=== PATIENT | female | born 1950 | race Caucasian/White ===

== ENCOUNTER → 2021-05-30 14:51 | Outpatient (BNVA) | payer MEDICARE, BC, SELFPAY | PROVIDERS: PCP Internal Medicine; Visit Provider Anesthesiology | DX: M96.1 Postlaminectomy syndrome, not elsewhere classified (principal); M54.5 Low back pain; G58.9 Mononeuropathy, unspecified; Z79.899 Other long term (current) drug therapy | CPT/HCPCS: 99202 ==

== ENCOUNTER → 2022-04-19 11:08 | Outpatient (BNVA) | payer MEDICARE, BC, SELFPAY | PROVIDERS: PCP Internal Medicine; Visit Provider Anesthesiology | DX: Z13.89 Encounter for screening for other disorder (principal) | CPT/HCPCS: Q3014 ==

== ENCOUNTER 2023-10-19 14:00 | Outpatient (RCR) | payer MEDICARE, BC, SELFPAY | END 2023-11-22 14:52 | disposition home or self-care (01) | LOC: HO.PT 14:00 | PROVIDERS: PCP Nurse Practitioner Primary Care; Visit Provider Student in an Organized Health Care Education/Training Program | DX: R10.2 Pelvic and perineal pain (principal) | CPT/HCPCS: 97112; 97140; 97162 ==

== ENCOUNTER 2024-02-13 14:56 | Outpatient (AMB) | payer MEDICARE, BC, SELFPAY ==
--- NOTE | 2024-02-13 14:57 | MHC.OFFVIS ---
Intake Vital Signs 02/13/24 15:12 Height 5 ft 5 in Weight 175 lb BMI 29.1 BP 160/70 H Blood Pressure Location Lt brachial Position Sitting Respiration 14 Pulse 79 Pulse Source Pulse Oximeter Pulse Oximetry (%) 98 Oxygen Delivery Method Room Air Intake Visit Reasons: back pain, procedure discussion last seen 05/10 Intake Note: Patient comes in to discuss back pain. Reports pain 02/26. Allergies No Known Allergies Allergy (Verified 04/19/22 11:10) HPI HPI Comments History of Present Illness Details Terri Alvarado is in my office today discussing possibility of further treatment. She was absent in this office since 2021. She continues to be interested in injections to alleviate her pain in the projection of the right buttock. She has possible positive Martín test on the right she has positive pelvic distraction and pelvic compression test on the right and she has positive Stinchfield test on the right. I can not exclude possibility of her pain coming from the right sacroiliac joint. 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 She also reported in the past she was diagnosed with coccydynia. After surgery on her Tarlov cyst did not bring her alleviation of the pain she went for 2nd opinion to Dr. Doss, who referred her for of this office to receive spinal cord stimulator for the treatment of her lower back pain. Also attention was attracted today that she reports pain with prolonged sitting, inability to seat for a long time. She brought me the report of the MRI which does not mentioned any edema but I prefer to see this MRI by myself. I offered this patient to perform today diagnostic sacroiliac joint injection on the right. I will meet this patient again after the injection I may offer her diagnostic medial branch blocks on the right as well. Depending on the MRI findings I may consider her for intrasept procedure. Prior: . She had multiple studies performed for her lower back. She had an MRI which is dictated as below. She was a subject of [facility] treatment for long period of time she received all injections known to the Pain Medicine to alleviate her pain: She received epidural steroid injections, facet joint injections, medial branch blocks, caudal epidural steroid injections, sacroiliac joint injections , intradiscal injection. The only injection she never received before Is cluneal nerve injection, or ganglion impar injection... Most of the pain she feels in the projection of the right buttock. She was subject of multiple sessions of physical therapy and chiropractic manipulations she has 10s unit at home which helps her minimally. She reports that physical therapy other than 10s unit does not help her pain. She tried tramadol gabapentin and other medications in the past to alleviate her pain. She reports that the gabapentin helps her minimally and she is planning to escalate the dose. She went for the consult with neurosurgeon and she had Tarlov cyst discovered and S1-S2 area. The Tarlov cysts was aspirated intraoperatively and it was filled with a fibrin glue. It alleviated her pain for few months and then pain can return back. In the thing she says that her sharp pain with radiation down to the extremity he is more rare now. She went for consultation to [place] [facility] and they referred this patient to me. The subject of referral is a discussion of spinal cord stimulator. [facility] Medical History (Updated 02/13/24 @ 16:04 by Palmer Bearden MD) Coccydynia Mononeuropathy, unspecified Postlaminectomy syndrome Low back pain Review of Systems Const All systems reviewed & are unremarkable except as noted in HPI and below ENT Reports Normal hearing present Neuro Reports Normal hearing present and Denies Sensory deficit (Neuro) Physical Exam Vital Signs: Last Vital Signs Pulse 79 02/13/24 15:12 Resp 14 02/13/24 15:12 BP 160/70 H 02/13/24 15:12 Pulse Ox 98 02/13/24 15:12 Oxygen Delivery Method Room Air 02/13/24 15:12 BMI result Body Mass Index 29.1 Const General: comfortable, no acute distress, well developed, alert and awake Eyes Pupils: Equal, round and reactive pupils present EOM: EOMs intact bilaterally Chest Chest palpation & inspection: normal inspection of the chest Resp Effort & Inspection: normal respiratory effort, able to speak in complete sentences, normal respiratory pattern, no audible wheezes and no cough Cardio Jugular venous distension: no JVD Back/Spine/Pelvis Other: no tenderness on palpation in paraspinal spinal region in lumbar spine. Loading test is positive. Range of motion in lumbar spine is preserved. Martín test is equivocal on the right but Stinchfield test pelvic compression test pelvic distraction test and Clare finger test might indicate sacroiliac joint pathology. SLR is negative bilaterally Neuro Cranial nerves: Yes Equal, round and reactive pupils present and Yes Normal hearing present Sensory Exam: No Sensory deficit (Neuro) Psych Speech and movement: Normal speech and movement present Affect: normal affect Attitude: cooperative Results Reviewed Results Reviewed: MRI of the lumbar spine 04/07/2021. Comparison to 07/19/2020. Findings: The study assumes 5 non rib bearing lumbar type vertebral bodies. There is minimal retrolisthesis of L1 on L2. Alignment is otherwise normal. Vertebral bodies heights are maintained. Bone marrow signal is within normal limits. Intervertebral disc spaces mildly desiccated between L5 and the L1 with minimal loss of disc space. The conus demonstrates normal signal and caliber with normal termination at L1-L2. Postsurgical changes are seen in lower back at midline. There is mild fatty atrophy of the posterior paraspinal muscles. It 6 mm overall T2 hyperintense focus of the left upper renal pole is too small to characterize but most complete bed able with the cyst. The visualized paraspinal soft tissues otherwise unremarkable. Finding bilevel: T12-L1: No significant disc herniation central stenosis or neural foraminal narrowing. L1-L2: Minimal broad-based disc bulge no significant central stenosis or neural foraminal narrowing. L2-L3: Minimal broad-based disc bulge no significant central stenosis or neural foraminal narrowing. L3-L4: Mild broad-based disc bulge with mild bilateral facet hypertrophy and ligamentum flavum infolding. No significant central stenosis or neural foraminal neck. L4-5: Mild broad-based disc bulge and mild facet hypertrophy but no significant central stenosis or neural foraminal narrowing. L5-S1 minimal broad-based disc bulge along with mild bilateral facet arthropathy no significant central stenosis or neural foraminal narrowing. Sacrum surgical defect in the posterior element is again noted at S1-S2 for a section of the prosthesis. There is several tiny cystic foci at the margin of surgical bed including the bilobed focus on the right measuring 370176 cm at C1-C2 which is unchanged from the prior exam 07/19/2020 allowing for differences in slice section Impression postsurgical changes at S1-S2 similar to 07/19/2020 with similar residual bilobed cystic structure on the right. Mild degenerative changes of the lumbar spine are otherwise similar to prior with no high-grade stenosis or nerve root compression. Assessment & Plan Assessment & Plan (1) Low back pain: Code(s): M54.5 - Low back pain (2) Postlaminectomy syndrome: Code(s): M96.1 - Postlaminectomy syndrome, not elsewhere classified (3) Mononeuropathy, unspecified: Code(s): G58.9 - Mononeuropathy, unspecified (4) Coccydynia: Code(s): M53.3 - Sacrococcygeal disorders, not elsewhere classified (5) Sacroiliitis: Code(s): M46.1 - Sacroiliitis, not elsewhere classified (6) Chronic right sacroiliac joint pain: Code(s): M53.3 - Sacrococcygeal disorders, not elsewhere classified; G89.29 - Other chronic pain Plan It is hard to make appropriate diagnosis for this patient she had so many procedures in the past. Her MRI looks relatively benign on the description however I would like to see the actual images.. I am not sure how Tarlov cyst is actually her pain generator of whenever is left of it. Dr. Doss in my opinion did not offer her surgery absolutely correctly there is nothing there to do with the surgery. She was diagnosed with coccydynia and treatment for this could be ganglion impar. However today considering the symptoms of the sacroiliitis on the right described as the above I offered her to perform right diagnostic sacroiliac joint injection. We decided to proceed with right diagnostic SI joint injection and after that I will see the MRI and we will assess the sacroiliac joint injection results and the findings on the image of the MRI. We did not discuss spinal cord stimulation. Patient Instructions: I here by testify that I spent 45 minutes in conversation with this patient as well as evaluating her prior records, evaluating her prior images, and organizing this note. Coding Level of Care Code Est Pt Level 5 (06953) Diagnoses Low back pain M54.5 Postlaminectomy syndrome M96.1 Mononeuropathy, unspecified G58.9 Coccydynia M53.3 Sacroiliitis M46.1 Chronic right sacroiliac joint pain M53.3; G89.29
[2024-02-13 15:12] VITALS: BP 160/70; PULSE 79; RESP 14; O2SAT 98; BMI 29.1
== END 2024-02-13 15:53 | disposition home or self-care (01) ==
PROVIDERS: PCP Nurse Practitioner Primary Care; Visit Provider Anesthesiology
DX: M54.50 Low back pain, unspecified (principal); M96.1 Postlaminectomy syndrome, not elsewhere classified; G58.9 Mononeuropathy, unspecified; M53.3 Sacrococcygeal disorders, not elsewhere classified; M46.1 Sacroiliitis, not elsewhere classified; G89.29 Other chronic pain
CPT/HCPCS: 99215

== ENCOUNTER → 2024-02-13 14:56 | Outpatient (BNVA) | payer MEDICARE, BC, SELFPAY | PROVIDERS: PCP Nurse Practitioner Primary Care; Visit Provider Anesthesiology | DX: M96.1 Postlaminectomy syndrome, not elsewhere classified (principal); M53.3 Sacrococcygeal disorders, not elsewhere classified; M54.50 Low back pain, unspecified; G58.9 Mononeuropathy, unspecified; M46.1 Sacroiliitis, not elsewhere classified; G89.29 Other chronic pain | CPT/HCPCS: 99212 ==

== ENCOUNTER 2024-02-26 06:20 | Outpatient (REF) | payer MEDICARE, BC, SELFPAY ==
--- NOTE | ~2024-02-26 | FL_ITS ---
EXAMINATION: XR FLUOROSCOPY WITH IMAGES CLINICAL INFORMATION: Right sacroiliac joint injection. COMPARISON: None available. TECHNIQUE: Fluoroscopy Supervised By: Dr. Palmer Bearden. Fluoroscopy Time: 0.1 minutes. Cumulative Dose: 5.52 mGy. DAP: 1.46 Gycm2. Images: 2. FINDINGS: The submitted images show an injection needle and injected contrast deposited in the vicinity of the right sacroiliac joint. FL/FL guidance in treatment room IMPRESSION: Intraoperative fluoroscopic guidance is provided during right sacroiliac joint injection. Please see the patient's Operative Report for full procedural details.
== END 2024-02-26 06:21 | disposition home or self-care (01) ==
LOC: CF 06:20
PROVIDERS: Visit Provider Anesthesiology
DX: M53.3 Sacrococcygeal disorders, not elsewhere classified (principal); M46.1 Sacroiliitis, not elsewhere classified; G89.29 Other chronic pain
CPT/HCPCS: 27096; J2795; Q9967

== ENCOUNTER 2024-02-26 14:41 | Outpatient (AMB) | payer MEDICARE, BC, SELFPAY ==
[2024-02-26 14:45] VITALS: BP 122/68; PULSE 86; RESP 14; O2SAT 97; BMI 28.6
--- NOTE | 2024-02-26 14:45 | MHC.OFFVIS ---
Intake Vital Signs 02/26/24 14:45 02/26/24 15:38 Height 5 ft 5 in 5 ft 5 in Weight 172 lb 172 lb BMI 28.6 28.6 BP 122/68 130/68 Blood Pressure Location Lt brachial Lt brachial Position Sitting Sitting Respiration 14 14 Pulse 86 78 Pulse Source Pulse Oximeter Pulse Oximeter Pulse Oximetry (%) 97 97 Oxygen Delivery Method Room Air Room Air Comment Pre-Op Post-Op Intake Visit Reasons: Right Dx SIJ inj Allergies No Known Allergies Allergy (Verified 02/26/24 15:43) [facility] Medical History (Updated 02/13/24 @ 16:04 by Palmer Bearden MD) Coccydynia Mononeuropathy, unspecified Postlaminectomy syndrome Low back pain Physical Exam Vital Signs: Last Vital Signs Pulse 78 02/26/24 15:38 Resp 14 02/26/24 15:38 BP 130/68 02/26/24 15:38 Pulse Ox 97 02/26/24 15:38 Oxygen Delivery Method Room Air 02/26/24 15:38 BMI result Body Mass Index 28.6 Assessment & Plan Assessment & Plan (1) Chronic right sacroiliac joint pain: Code(s): M53.3 - Sacrococcygeal disorders, not elsewhere classified; G89.29 - Other chronic pain (2) Sacroiliitis: Code(s): M46.1 - Sacroiliitis, not elsewhere classified Plan Right diagnostic Sacroiliac joint injection Informed consent was explained thoroughly to the patient.? All questions about benefits and risks for the procedure were answered. Patient came to the operating room and was positioned prone on the operating table with the pillow under the pelvis.? [place] [employer] monitors were applied and patient was deeply sedated.? The lower back and buttocks of the patient were prepped with ChloraPrep prepped and draped with sterile utility towels.? Sterilely draped C-arm was brought over the operating field and sq picture of patient's pelvis was demonstrated on the screen.? For the right joint tilting C-arm contralateral to the site of the joint the most posterior portion of the joints was superimposed with anterior silhouette of the joint.? Skin was injected in the projection of the joint slightly medial to the location of the joint with 25 gauge 1/2 inch needle using local lidocaine 2% . After that 22 gauge 3 and 1/2 inch needle was driven to the right joint in tunnel vision fashion.? When needle entered the joint capsule injection of the contrast was performed demonstrating intra-articular and minimally periarticular spread of the contrast.? After that 4 cc. of ropivacaine 0.5% was injected into each joint.? Upon completion of the injections the needles were removed and pressure were applied.? Sterile dressing was applied.? Upon completion of the injection patient was taken outside of the operating room to the recovery room where recovered uneventfully. Orders: Orders FL guidance in treatment room 02/26/24 G89.29 - Other chronic pain, M53.3 - Sacrococcygeal disorders, not elsewhere classified Coding Level of Care Code Procedure Only Diagnoses Chronic right sacroiliac joint pain M53.3; G89.29 Sacroiliitis M46.1
[2024-02-26 15:38] VITALS: BP 130/68; PULSE 78; RESP 14; O2SAT 97; BMI 28.6
== END 2024-02-26 15:43 | disposition home or self-care (01) ==
LOC: HO.PMCPRC 14:41
PROVIDERS: PCP Nurse Practitioner Primary Care; Visit Provider Anesthesiology
DX: M53.3 Sacrococcygeal disorders, not elsewhere classified (principal); G89.29 Other chronic pain; M46.1 Sacroiliitis, not elsewhere classified
CPT/HCPCS: 27096

== ENCOUNTER 2024-02-28 14:21 | Outpatient (AMB) | payer MEDICARE, BC, SELFPAY ==
--- NOTE | 2024-02-28 14:30 | A.OFFVIS_ITS ---
Intake Vital Signs 02/28/24 14:41 Height 5 ft 5 in Weight 172 lb BMI 28.6 BP 150/76 H Blood Pressure Location Lt brachial Position Sitting Respiration 16 Pulse 69 Pulse Source Pulse Oximeter Pulse Oximetry (%) 97 Oxygen Delivery Method Room Air Intake Visit Reasons: s/p right Dx Sij Inj Intake Note: Patient comes in for post-op appointment. Reports pain 0/10. Allergies No Known Allergies Allergy (Verified 02/28/24 14:41) HPI HPI Comments History of Present Illness Details Terri Alvarado is in my office today discussing possibility of further treatment. It was prolonged and difficult conversation with this patient again. She came today after diagnostic right sacroiliac joint injection I performed on her on 02/26/2024. She reports absence of pain for the 1st hour after the injection. Reports that pain after that started to climb up. However the pain remained at the level of 2/10 for the 1st 3 hours after the procedure at 04:00 hours pain was 3/10 at 05:00 hours pain was 4/10 it will returned to the baseline as 5/10. That corresponds to the time the ropivacaine would work for intra articular injection. I personally evaluated the MRI she brought to this office for me. She insists that the most of her pain is when she is sitting. She denies pain radiation into right lower extremity. She reports pain radiating only into the hip and the thigh. She was asking very appropriate questions. 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 I can not exclude or supports this opinion. Removal of this Tarlov cyst was done at S2 on the right. I offered her sacroiliac joint injection. This time it will be therapeutic procedure with steroids. The patient is reluctant to go for this procedure. There are minimal MRI changes at L5-S1 which could be read at as Modic type changes and I told her that I do not mind to try to perform even the intraseptal procedure although I told her honestly that this will be like while remy with unknown and not guaranteed results. I can not perform safely the procedure but it could be that this intervention is not alleviating her pain. I also told her that if for example sacroiliac joint injection will result in no improvement we can abandoned all the attempts to treat her pain with etiological chasing and divert ourselves to spinal cord stimulation or pain pump procedure (neuromodulation). She is not sure which way to proceed. She asked me to think about it. I told her that any time she is welcome after her decision to get engaged into sacroiliac joint injection therapeutic I will be here waiting for her decision. I told her that if she wants to consider the intraseptal procedure I may send her MRI to the experts radiologist on Modic type changes to confirm or deny presence of such changes in the lower lumbar spine. Prior: She was absent in this office since 2021. She continues to be interested in injections to alleviate her pain in the projection of the right buttock. She has possible positive Martín test on the right she has positive pelvic distraction and pelvic compression test on the right and she has positive Stinchfield test on the right. I can not exclude possibility of her pain coming from the right sacroiliac joint. 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 She also reported in the past she was diagnosed with coccydynia. After surgery on her Tarlov cyst did not bring her alleviation of the pain she went for 2nd opinion to Dr. Doss, who referred her for of this office to receive spinal cord stimulator for the treatment of her lower back pain. Also attention was attracted today that she reports pain with prolonged sitting, inability to seat for a long time. She brought me the report of the MRI which does not mentioned any edema but I prefer to see this MRI by myself. I offered this patient to perform today diagnostic sacroiliac joint injection on the right. I will meet this patient again after the injection I may offer her diagnostic medial branch blocks on the right as well. Prior: . She had multiple studies performed for her lower back. She had an MRI which is dictated as below. She was a subject of [facility] treatment for long period of time she received all injections known to the Pain Medicine to alleviate her pain: She received epidural steroid injections, facet joint injections, medial branch blocks, caudal epidural steroid injections, sacroiliac joint injections , intradiscal injection. The only injection she never received before Is cluneal nerve injection, or ganglion impar injection... Most of the pain she feels in the projection of the right buttock. She was subject of multiple sessions of physical therapy and chiropractic manipulations she has 10s unit at home which helps her minimally. She reports that physical therapy other than 10s unit does not help her pain. She tried tramadol gabapentin and other medications in the past to alleviate her pain. She reports that the gabapentin helps her minimally and she is planning to escalate the dose. She went for the consult with neurosurgeon and she had Tarlov cyst discovered and S1-S2 area. The Tarlov cysts was aspirated intraoperatively and it was filled with a fibrin glue. It alleviated her pain for few months and then pain can return back. In the thing she says that her sharp pain with radiation down to the extremity he is more rare now. She went for consultation to [place] [facility] and they referred this patient to me. The subject of referral is a discussion of spinal cord stimulator. [facility] Medical History (Updated 02/13/24 @ 16:04 by Palmer Bearden MD) Coccydynia Mononeuropathy, unspecified Postlaminectomy syndrome Low back pain Review of Systems Const All systems reviewed & are unremarkable except as noted in HPI and below ENT Reports Normal hearing present Neuro Reports Normal hearing present and Denies Sensory deficit (Neuro) Physical Exam Vital Signs: Last Vital Signs Pulse 69 02/28/24 14:41 Resp 16 02/28/24 14:41 BP 150/76 H 02/28/24 14:41 Pulse Ox 97 02/28/24 14:41 Oxygen Delivery Method Room Air 02/28/24 14:41 BMI result Body Mass Index 28.6 Const General: comfortable, no acute distress, well developed, alert and awake Eyes Pupils: Equal, round and reactive pupils present EOM: EOMs intact bilaterally Chest Chest palpation & inspection: normal inspection of the chest Resp Effort & Inspection: normal respiratory effort, able to speak in complete sentences, normal respiratory pattern, no audible wheezes and no cough Cardio Jugular venous distension: no JVD Back/Spine/Pelvis Other: no tenderness on palpation in paraspinal spinal region in lumbar spine. Loading test is positive. Range of motion in lumbar spine is preserved. Martín test is equivocal on the right but Stinchfield test pelvic compression test pelvic distraction test and Clare finger test might indicate sacroiliac joint pathology. SLR is negative bilaterally Neuro Cranial nerves: Yes Equal, round and reactive pupils present and Yes Normal hearing present Sensory Exam: No Sensory deficit (Neuro) Psych Speech and movement: Normal speech and movement present Affect: normal affect Attitude: cooperative Assessment & Plan Assessment & Plan (1) Low back pain: Code(s): M54.5 - Low back pain (2) Postlaminectomy syndrome: Code(s): M96.1 - Postlaminectomy syndrome, not elsewhere classified (3) Mononeuropathy, unspecified: Code(s): G58.9 - Mononeuropathy, unspecified (4) Coccydynia: Code(s): M53.3 - Sacrococcygeal disorders, not elsewhere classified Plan It is hard to make appropriate diagnosis for this patient she had so many procedures in the past. Her MRI looks relatively benign. I am not sure how Tarlov cyst is actually her pain generator of whenever is left of it. In my opinion Dr. Doss absolutely correctly did not offer her surgery, there is nothing there to do with the surgery. In the past she received all the injections known to the Pain Management however nothing helps her pain. She went to colorectal surgeon for consult and after the MRI of the pelvis it was discovered that the right side of her in all musculature was atrophied. It might be a result of the surgery on the Tarlov cyst. Diagnostic injection into the sacroiliac joint alleviated her pain for the 1st hour and decreased pain at least 50% for the next 4 hours the pain returned on 6 hour which corresponds to the action of ropivacaine. I offered her therapeutic SI joint injection and she refused. I also noted on the right sacroiliac joint mild insufficiency with 15 mm distance between the top portion of the sacrum and top portion of the ileum of the joint. The rest of the discussion is as above. She was referred to us to do neuromodulation specifically spinal cord stimulation [employer]. She is reluctant to go for this procedure. Patient Instructions: I here by testify that I spent 45 minutes in conversation with this patient as well as evaluating her MRI images as well as planning her care and organizing this note. Coding Level of Care Code Est Pt Level 5 (98306) Diagnoses Low back pain M54.5 Postlaminectomy syndrome M96.1 Mononeuropathy, unspecified G58.9 Coccydynia M53.3
[2024-02-28 14:41] VITALS: BP 150/76; PULSE 69; RESP 16; O2SAT 97; BMI 28.6
== END 2024-02-28 15:18 | disposition home or self-care (01) ==
PROVIDERS: PCP Nurse Practitioner Primary Care; Visit Provider Anesthesiology
DX: M54.50 Low back pain, unspecified (principal); M96.1 Postlaminectomy syndrome, not elsewhere classified; G58.9 Mononeuropathy, unspecified; M53.3 Sacrococcygeal disorders, not elsewhere classified
CPT/HCPCS: 99215

== ENCOUNTER → 2024-02-28 14:21 | Outpatient (BNVA) | payer MEDICARE, BC, SELFPAY | PROVIDERS: PCP Nurse Practitioner Primary Care; Visit Provider Anesthesiology | DX: M54.50 Low back pain, unspecified (principal); M96.1 Postlaminectomy syndrome, not elsewhere classified; M53.3 Sacrococcygeal disorders, not elsewhere classified; G58.9 Mononeuropathy, unspecified | CPT/HCPCS: 99212 ==

== ENCOUNTER 2024-05-06 06:12 | Outpatient (REF) | payer MEDICARE, BC, SELFPAY ==
--- NOTE | ~2024-05-06 | FL_ITS ---
EXAMINATION: XR FLUOROSCOPY WITH IMAGES CLINICAL INFORMATION: Sacrococcygeal disorder. COMPARISON: None available. TECHNIQUE: Fluoroscopy Supervised By: Dr. Palmer Bearden. Fluoroscopy Time: 0.1 minutes. Cumulative Dose: 2.20 mGy. DAP: 0.361 Gy-cm2. Images: 1. FINDINGS: Intraoperative fluoroscopy and spot films were performed during a procedure in the OR. A needle tip is seen overlying the mid right SI joint. Contrast media is seen around the needle tip. Please correlate with Dr. Pamler Bearden's report for complete details. FL/FL guidance in treatment room IMPRESSION: Intraoperative fluoroscopy and spot films were obtained. Please see Dr. Palmer Bearden's report for complete details.
== END 2024-05-06 06:13 | disposition home or self-care (01) ==
LOC: CF 06:12
PROVIDERS: Visit Provider Anesthesiology
DX: M53.3 Sacrococcygeal disorders, not elsewhere classified (principal); M46.1 Sacroiliitis, not elsewhere classified; G89.29 Other chronic pain
CPT/HCPCS: 27096; J2795; J3301; Q9967

== ENCOUNTER 2024-05-06 14:22 | Outpatient (AMB) | payer MEDICARE, BC, SELFPAY ==
--- NOTE | 2024-05-06 14:33 | MHC.OFFVIS ---
Vital Signs 05/06/24 15:16 05/06/24 15:17 Height 5 ft 5 in 5 ft 5 in Weight 172 lb 172 lb BMI 28.6 28.6 BP 116/62 126/70 Blood Pressure Location Lt brachial Lt brachial Position Sitting Sitting Respiration 14 14 Pulse 68 79 Pulse Source Pulse Oximeter Pulse Oximeter Pulse Oximetry (%) 98 98 Oxygen Delivery Method Room Air Room Air Comment pre-op post-op Intake Visit Reasons: RIGHT THERAPEUTIC SIJ INJECTION Allergies No Known Allergies Allergy (Verified 02/28/24 14:41) FORMERLY [facility], [facility]–1983 Medical History (Updated 02/13/24 @ 16:04 by Palmer Bearden MD) Coccydynia Mononeuropathy, unspecified Postlaminectomy syndrome Low back pain Physical Exam Vital Signs: Last Vital Signs Pulse 79 05/06/24 15:17 Resp 14 05/06/24 15:17 BP 126/70 05/06/24 15:17 Pulse Ox 98 05/06/24 15:17 Oxygen Delivery Method Room Air 05/06/24 15:17 BMI result Body Mass Index 28.6 Assessment & Plan Assessment & Plan (1) Chronic right sacroiliac joint pain: Code(s): M53.3 - Sacrococcygeal disorders, not elsewhere classified; G89.29 - Other chronic pain Category: Medical (2) Sacroiliitis: Code(s): M46.1 - Sacroiliitis, not elsewhere classified Category: Medical Plan Right therapeutic sacroiliac joint injection Informed consent was explained thoroughly to the patient. All questions about benefits and risks for the procedure were answered. Patient came to the operating room and was positioned prone on the operating table with the pillow under the pelvis. Time out was performed delineating name and of the patient, allergies and the nature of the procedure. The lower back and buttocks of the patient were prepped with ChloraPrep prepped and draped with sterile utility towels. C-arm was brought over the operating field and sq picture of patient's pelvis was demonstrated on the screen. For the right joint tilting C-arm contralateral to the site of the joint the most posterior portion of the joints was superimposed with anterior silhouette of the joint. Skin was injected in the projection of the joint slightly medial to the location of the joint with 25 gauge 1/2 inch needle using local lidocaine 2% .After that 22 gauge 3 and 1/2 inch needle was driven to the right joint in tunnel vision fashion. When needle entered the joint capsule injection of the contrast was performed demonstrating intra-articular and minimally periarticular spread of the contrast. After that 4 cc. of ropivacaine 0.5% mixed with Kenalog 40 mg was injected into the joint. Upon completion of the injections the needle was removed Sterile dressing was applied. Upon completion of the injection patient was taken outside of the operating room to the recovery room where recovered uneventfully. Orders: Orders FL guidance in treatment room Today G89.29 - Other chronic pain, M53.3 - Sacrococcygeal disorders, not elsewhere classified Coding Level of Care Code Procedure Only Diagnoses Chronic right sacroiliac joint pain M53.3; G89.29 Sacroiliitis M46.1
[2024-05-06 15:16] VITALS: BP 116/62; PULSE 68; RESP 14; O2SAT 98; BMI 28.6
[2024-05-06 15:17] VITALS: BP 126/70; PULSE 79; RESP 14; O2SAT 98; BMI 28.6
== END 2024-05-06 15:06 | disposition home or self-care (01) ==
LOC: HO.PMCPRC 14:22
PROVIDERS: PCP Nurse Practitioner Primary Care; Visit Provider Anesthesiology
DX: M53.3 Sacrococcygeal disorders, not elsewhere classified (principal); M46.1 Sacroiliitis, not elsewhere classified; G89.29 Other chronic pain
CPT/HCPCS: 27096

== ENCOUNTER 2024-06-02 12:55 | Outpatient (AMB) | payer MEDICARE, BC, SELFPAY ==
--- NOTE | 2024-06-02 13:05 | MHC.OFFVIS ---
Vital Signs 06/02/24 13:10 Height 5 ft 5 in Weight 167 lb 8 oz BMI 27.9 BP 150/70 H Blood Pressure Location Lt brachial Position Sitting Respiration 14 Pulse 63 Pulse Source Pulse Oximeter Pulse Oximetry (%) 99 Oxygen Delivery Method Room Air Intake Visit Reasons: Right SIJ Intake Note: Patient comes in for post op. Reports pain 4/10. Allergies No Known Allergies Allergy (Verified 06/02/24 13:10) HPI Comments Details: Terri Alvarado is in my office today discussing possibility of further treatment. She had therapeutic sacroiliac joint injection on the right on 05/06/2024. She reports very minimal pain relief after the injection. She reports numbness in the right lower extremity and unpleasant undefined sensation in the right calf after the injection. She reports that this condition is lasting after the injection and until now for about 1 month. I explained to her that sometimes the medication spreads out into the sciatic nerve but it is impossible to receive the injury of sciatic nerve with sacroiliac joint injection. In any way the numbness does not last longer than few hours. He can not explain the symptoms, I explained to her that she was sent to this office by Neurosurgery to receive spinal cord stimulator, however she was very reluctant to go for spinal cord stimulation trial and since then we tried multiple procedures to try and diagnose her pain with injections. She reports today that bending backwards aggravate her pain, she asks me if medial branch block can not be administered to her to figure out her pain syndrome. I agreed and I will schedule her for right-sided medial branch block L2, L3, L4, dorsal ramus L5 diagnostic. Other options were reiterated for the patient, chronic opioid therapy was explained to the patient. The consent, opioid information page, opioid agreement page were given to the patient for her information. The need for psychological evaluation to go for neuromodulation was reiterated for the patient. SCS was briefly explained to the patient today. I DDD was also explained to the patient. Results of diagnostic SI joint injection 02/26/2024. She reports absence of pain for the 1st hour after the injection. Reports that pain after that started to climb up. However the pain remained at the level of 2/10 for the 1st 3 hours after the procedure at 04:00 hours pain was 3/10 at 05:00 hours pain was 4/10 it will returned to the baseline as 5/10. That corresponds to the time the ropivacaine would work for intra articular injection. I personally evaluated the MRI she brought to this office for me. She insists that the most of her pain is when she is sitting. She denies pain radiation into right lower extremity. She reports pain radiating only into the hip and the thigh. She was asking very appropriate questions. 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 I can not exclude or supports this opinion. Removal of this Tarlov cyst was done at S2 on the right. There are minimal MRI changes at L5-S1 which could be read at as Modic type changes , she does exhibit difficulty with prolonged sitting.. Prior: She was absent in this office since 2021. She continues to be interested in injections to alleviate her pain in the projection of the right buttock. She has possible positive Martín test on the right she has positive pelvic distraction and pelvic compression test on the right and she has positive Stinchfield test on the right. I can not exclude possibility of her pain coming from the right sacroiliac joint. 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 She also reported in the past she was diagnosed with coccydynia. After surgery on her Tarlov cyst did not bring her alleviation of the pain she went for 2nd opinion to Dr. Doss, who referred her for of this office to receive spinal cord stimulator for the treatment of her lower back pain. Also attention was attracted today that she reports pain with prolonged sitting, inability to seat for a long time. She brought me the report of the MRI which does not mentioned any edema but I prefer to see this MRI by myself. I offered this patient to perform today diagnostic sacroiliac joint injection on the right. I will meet this patient again after the injection I may offer her diagnostic medial branch blocks on the right as well. Prior: . She had multiple studies performed for her lower back. She had an MRI which is dictated as below. She was a subject of [facility] treatment for long period of time she received all injections known to the Pain Medicine to alleviate her pain: She received epidural steroid injections, facet joint injections, medial branch blocks, caudal epidural steroid injections, sacroiliac joint injections , intradiscal injection. The only injection she never received before Is cluneal nerve injection, or ganglion impar injection... Most of the pain she feels in the projection of the right buttock. She was subject of multiple sessions of physical therapy and chiropractic manipulations she has 10s unit at home which helps her minimally. She reports that physical therapy other than 10s unit does not help her pain. She tried tramadol gabapentin and other medications in the past to alleviate her pain. She reports that the gabapentin helps her minimally and she is planning to escalate the dose. She went for the consult with neurosurgeon and she had Tarlov cyst discovered and S1-S2 area. The Tarlov cysts was aspirated intraoperatively and it was filled with a fibrin glue. It alleviated her pain for few months and then pain can return back. In the thing she says that her sharp pain with radiation down to the extremity he is more rare now. She went for consultation to [facility] and they referred this patient to me. The subject of referral is a discussion of spinal cord stimulator. COUNTS INCLUDE 234 BEDS AT THE [facility] Medical History (Updated 06/02/24 @ 16:14 by Palmer Bearden MD) Coccydynia Mononeuropathy, unspecified Postlaminectomy syndrome Low back pain Review of Systems Const All systems reviewed & are unremarkable except as noted in HPI and below ENT Reports Normal hearing present Neuro Reports Normal hearing present and Denies Sensory deficit (Neuro) Physical Exam Vital Signs: Last Vital Signs Pulse 63 06/02/24 13:10 Resp 14 06/02/24 13:10 BP 150/70 H 06/02/24 13:10 Pulse Ox 99 06/02/24 13:10 Oxygen Delivery Method Room Air 06/02/24 13:10 BMI result Body Mass Index 27.9 Const General: comfortable, no acute distress, well developed, alert and awake Eyes Pupils: Equal, round and reactive pupils present EOM: EOMs intact bilaterally Chest Chest palpation & inspection: normal inspection of the chest Resp Effort & Inspection: normal respiratory effort, able to speak in complete sentences, normal respiratory pattern, no audible wheezes and no cough Cardio Jugular venous distension: no JVD Back/Spine/Pelvis Other: no tenderness on palpation in paraspinal spinal region in lumbar spine. Loading test is positive. Range of motion in lumbar spine is preserved. Martín test is equivocal on the right but Stinchfield test pelvic compression test pelvic distraction test and Clare finger test might indicate sacroiliac joint pathology. SLR is negative bilaterally Neuro Cranial nerves: Yes Equal, round and reactive pupils present and Yes Normal hearing present Sensory Exam: No Sensory deficit (Neuro) Psych Speech and movement: Normal speech and movement present Affect: normal affect Attitude: cooperative Results Reviewed Results Reviewed: MRI of the lumbar spine 04/07/2021. Comparison to 07/19/2020. Findings: The study assumes 5 non rib bearing lumbar type vertebral bodies. There is minimal retrolisthesis of L1 on L2. Alignment is otherwise normal. Vertebral bodies heights are maintained. Bone marrow signal is within normal limits. Intervertebral disc spaces mildly desiccated between L5 and the L1 with minimal loss of disc space. The conus demonstrates normal signal and caliber with normal termination at L1-L2. Postsurgical changes are seen in lower back at midline. There is mild fatty atrophy of the posterior paraspinal muscles. It 6 mm overall T2 hyperintense focus of the left upper renal pole is too small to characterize but most complete bed able with the cyst. The visualized paraspinal soft tissues otherwise unremarkable. Finding bilevel: T12-L1: No significant disc herniation central stenosis or neural foraminal narrowing. L1-L2: Minimal broad-based disc bulge no significant central stenosis or neural foraminal narrowing. L2-L3: Minimal broad-based disc bulge no significant central stenosis or neural foraminal narrowing. L3-L4: Mild broad-based disc bulge with mild bilateral facet hypertrophy and ligamentum flavum infolding. No significant central stenosis or neural foraminal neck. L4-5: Mild broad-based disc bulge and mild facet hypertrophy but no significant central stenosis or neural foraminal narrowing. L5-S1 minimal broad-based disc bulge along with mild bilateral facet arthropathy no significant central stenosis or neural foraminal narrowing. Sacrum surgical defect in the posterior element is again noted at S1-S2 for a section of the prosthesis. There is several tiny cystic foci at the margin of surgical bed including the bilobed focus on the right measuring 002024 cm at C1-C2 which is unchanged from the prior exam 07/19/2020 allowing for differences in slice section Impression postsurgical changes at S1-S2 similar to 07/19/2020 with similar residual bilobed cystic structure on the right. Mild degenerative changes of the lumbar spine are otherwise similar to prior with no high-grade stenosis or nerve root compression. Assessment & Plan Assessment & Plan (1) Low back pain: Code(s): M54.5 - Low back pain Category: Medical (2) Postlaminectomy syndrome: Code(s): M96.1 - Postlaminectomy syndrome, not elsewhere classified Category: Medical (3) Mononeuropathy, unspecified: Code(s): G58.9 - Mononeuropathy, unspecified Category: Medical (4) Coccydynia: Code(s): M53.3 - Sacrococcygeal disorders, not elsewhere classified Category: Medical (5) Spondylosis of lumbar region without myelopathy or radiculopathy: Code(s): M47.816 - Spondylosis without myelopathy or radiculopathy, lumbar region Category: Medical Plan It is hard to make appropriate diagnosis for this patient she had so many procedures in the past. Her MRI looks relatively benign. I am not sure how Tarlov cyst is actually her pain generator of whenever is left of it. In my opinion Dr. Doss absolutely correctly did not offer her surgery, there is nothing there to do with the surgery. In the past she received all the injections known to the Pain Management however nothing helps her pain. She went to colorectal surgeon for consult and after the MRI of the pelvis it was discovered that the right side of her in all musculature was atrophied. It might be a result of the surgery on the Tarlov cyst. Diagnostic injection into the sacroiliac joint alleviated her pain for the 1st hour and decreased pain at least 50% for the next 4 hours the pain returned on 6 hour which corresponds to the action of ropivacaine. However therapeutic sacroiliac joint injection resulted in no pain improvement. Also she started to complain on numbness in the right lower extremity after the injection. Unlikely it comes from the injection itself even if the spread of the medication on the sciatic nerve associated with sacroiliac joint injections occurred does not last longer than few minutes. The patient was fully awake during the procedure. She did not report any discomfort which would be associated with needle penetration of the sciatic nerve. She is asking me to attempt to perform medial branch block I will schedule her for right-sided L2, L3, L4, dorsal ramus L5 medial branch block. At the same time I told her that I would be looking for her to go for psychological evaluation in preparation for SCS versus I DDD treatment. Chronic opioid therapy was also explained to the patient. Opioid consent opioid contract opioid information page were given to the patient. She will be reading those pages and she will let us know what her decision will be. She was referred to us to do neuromodulation specifically spinal cord stimulation [email or web address]. She is reluctant to go for this procedure. Patient Instructions: I here by testify that I spent 32 minutes in conversation with this patient as well as planning her care and organizing this note. Coding Level of Care Code Est Pt Level 4 (17276) Diagnoses Low back pain M54.5 Postlaminectomy syndrome M96.1 Mononeuropathy, unspecified G58.9 Coccydynia M53.3 Spondylosis of lumbar region without myelopathy or radiculopathy M47.816
[2024-06-02 13:10] VITALS: BP 150/70; PULSE 63; RESP 14; O2SAT 99; BMI 27.9
== END 2024-06-02 13:39 | disposition home or self-care (01) ==
PROVIDERS: PCP Nurse Practitioner Primary Care; Visit Provider Anesthesiology
DX: M96.1 Postlaminectomy syndrome, not elsewhere classified (principal); G58.9 Mononeuropathy, unspecified; M53.3 Sacrococcygeal disorders, not elsewhere classified; M47.816 Spondylosis without myelopathy or radiculopathy, lumbar region
CPT/HCPCS: 99214

== ENCOUNTER → 2024-06-02 12:55 | Outpatient (BNVA) | payer MEDICARE, BC, SELFPAY | PROVIDERS: PCP Nurse Practitioner Primary Care; Visit Provider Anesthesiology | DX: M54.50 Low back pain, unspecified (principal); M96.1 Postlaminectomy syndrome, not elsewhere classified; M53.3 Sacrococcygeal disorders, not elsewhere classified; M47.816 Spondylosis without myelopathy or radiculopathy, lumbar region; G58.9 Mononeuropathy, unspecified | CPT/HCPCS: 99212 ==